=== PATIENT | female | born 1955 | race Caucasian/White ===

== ENCOUNTER 2017-01-21 07:54 | Observation (INO) | payer OTHER ==
[~2017-01-21 07:54] MED LIST: ADENOSINE 60 MG/20 ML VIAL ONE
[2017-01-21 08:43] LABS: #Basophils 0.1 thou/uL (0.0-0.2); #Eosinphils 0.1 thou/uL (0.0-0.7); #Lymphocytes 1.8 thou/uL (1.20-3.40); #Monocytes 0.7 thou/uL (0.11-0.59); #Neutrophils 5.6 thou/uL (1.40-6.50); %Basophils 0.7 % (0.0-1.0); %Eosinophils 1.1 % (0.0-10.0); %Lymphocytes 21.4 % (21.0-51.0); %Monocytes 8.3 % (0.0-10.0); Mean Platelet Volume 7.8 fL (7.4-10.4); Red Blood Cell (RBC) Count 4.27 mill/uL (4.20-5.40); White Blood Cell (WBC) Count 8.2 thou/uL (4.8-10.8)
[2017-01-21 09:06] LABS: ALT (SGPT) 15 U/L (8-55); AST (SGOT) 15 U/L (5-34); Alkaline Phosphatase 71 U/L (40-150); Anion Gap 12 mmol/L (10-20); BUN (Urea Nitrogen) 19 mg/dL (9.8-20.1); Bilirubin, Total 0.4 mg/dL (0.2-1.2); CK (CPK) 64 U/L (29-168); Calc. Creatinine Clearance 0 mL/min (70-130); Calcium 9.2 mg/dL (7.8-10.44); Carbon Dioxide 28 mmol/L (23-31); Chloride 102 mmol/L (98-107); Estimated GFR-MDRD 65; Globulin 2.9 g/dL (2.4-3.5); Lipase 11 U/L (8-78); Protein, Total 6.8 g/dL (6.0-8.3)
[2017-01-21 09:07] LABS: Troponin I Less than 0.010 ng/mL (< 0.028)
--- NOTE | 2017-01-21 09:19 | RAD ---
EXAM: CHEST 2 VIEWS: HISTORY: Chest pain. COMPARISON: None. FINDINGS: Slight elongation of the aorta. Normal cardiac silhouette. The pulmonary vessels and hilum are nor mal. No masses or consolidation. No pneumothorax or osseous abnormalities. IMPRESSION: No acute cardiopulmonary process. POS: [facility]
[2017-01-21] MEDS ORDERED: Potassium Chloride 20 MEQ TAB ONE (11:22)
[2017-01-21 11:27] LABS: Bilirubin Negative (Negative); Blood, Urine Negative (Negative); Glucose, Urine (Dipstick) Negative (Negative); Ketone, Urine Negative (Negative); Nitrite Negative (Negative); Protein, Urine (Dipstick) Negative (Neg-Trace); Urobilinogen 0.2 mg/dL (0.2-1.0)
[2017-01-21 11:30] LABS: Bacteria/HPF Rare-Few HPF (None Seen); Hyaline Casts/LPF 0-3 HYALINE CAST LPF (0-3 Hyaline); Squamous Epithelial 0-3 HPF (0-3)
[2017-01-21] MEDS ORDERED: ADENOSINE 60 MG/20 ML VIAL ONE (11:41)
[2017-01-21 12:00] LABS: Troponin I 0.013 ng/mL (< 0.028)
--- NOTE | 2017-01-21 12:28 | SS ---
PRIMARY CARE PHYSICIAN: [facility] call admission. REASON FOR ADMISSION: Chest pain. HISTORY OF PRESENT ILLNESS: A 61-year-old female with history of hypertension and fibromyalgia, who came to the emergency room with complaint of left-sided chest pain. This morning, the patient woke up and subsequently she was experiencing left-sided chest pain. She denies any radiation of pain. She felt mild diaphoresis, shortness of breath, but she did not have any associated nausea or vomiting. The patient denies any relation of chest pain with food, respiration or activity. Her intensity of pain was about 5/10. The patient took aspirin, but that did not improve her pain and her pain was getting worse and that is why she concerned about heart related etiology and came to the emergency room for evaluation. The patient reports that she had two cardiac catheterization and angioplasty in the past and she does have a history of coronary artery disease and she is taking medication for that. Currently, the patient is an inmate. 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 She denies any lower extremity swelling. She denies any calf tenderness. She denies any dizziness, palpitation or syncope. REVIEW OF SYSTEMS: The following complete review of systems was negative, unless otherwise mentioned in the HPI or below: Constitutional: Weight loss or gain, ability to conduct usual activities. Skin: Rash, itching. Eyes: Double vision, pain. ENT/Mouth: Nose bleeding, neck stiffness, pain, tenderness. Cardiovascular: Palpitations, dyspnea on exertion, orthopnea. Respiratory: Shortness of breath, wheezing, cough, hemoptysis, fever or night sweats. Gastrointestinal: Poor appetite, abdominal pain, heartburn, nausea, vomiting, constipation, or diarrhea. Genitourinary: Urgency, frequency, dysuria, nocturia. Musculoskeletal: Pain, swelling. Neurologic/Psychiatric: Anxiety, depression. Allergy/Immunologic: Skin rash, bleeding tendency. Please see my HPI for pertinent positives and negatives. All other review of systems reviewed and negative except as mentioned in the HPI. PAST MEDICAL HISTORY: Per the patient, she has history of coronary artery disease. She had myocardial infarction and she required cardiac catheterization and angioplasty in the past, hiatal hernia, hypertension, fibromyalgia, and peripheral neuropathy. PAST SURGICAL HISTORY: Blepharoplasty, cholecystectomy, hysterectomy, tonsillectomy, and cardiac catheterization. PAST PSYCHIATRIC HISTORY: Anxiety, depression, and posttraumatic stress disorder. SOCIAL HISTORY: The patient is originally from [place], currently inmate. No history of tobacco, alcohol or illicit drug abuse. FAMILY HISTORY: Positive for coronary artery disease to her biological father. EMERGENCY ROOM COURSE: The patient is given potassium chloride 40 mEq. ALLERGIES: No known drug allergies. CURRENT MEDICATIONS: Lisinopril 20 mg p.o. daily, Coreg 6.25 mg twice daily, hydrochlorothiazide 25 mg p.o. daily, and amlodipine 5 mg p.o. daily PHYSICAL EXAMINATION: VITAL SIGNS: On arrival, blood pressure 114/76, pulse 75, respiratory rate 16, temperature 98.6, saturation 96% on room air, weight 86.1 kilograms. GENERAL: The patient is currently alert and awake, no acute distress. HEAD: Normocephalic and atraumatic. EYES: Pupils round, reactive to light. Extraocular muscles are intact. ENT: Oropharynx within normal limits. Moist mucous membranes. No oral lesion , no pharyngeal erythema, exudate. NECK: Supple, range of motion is normal. No meningeal signs of irritation. LUNGS: Clear to auscultation without any rhonchi or rales. CARDIAC: S1, S2 regular without any murmur. ABDOMEN: Soft, bowel sounds present, nontender, nondistended. No organomegaly , no mass, no suprapubic tenderness. BACK: Unremarkable. No CVA tenderness. EXTREMITIES: Upper extremity passive movements of all joints are normal. Lower extremity, no edema. Good peripheral pulsation. No calf tenderness. PSYCHIATRIC: Normal affect. HEMATOLOGIC: No lymphadenopathy. SKIN: No skin rash. NEUROLOGIC: Nonfocal examination. SIGNIFICANT LABS, EKG based on my review reveals normal sinus rhythm within normal limits. Chest x-ray based on my review, no acute cardiopulmonary process. CBC: WBC 8.2, hemoglobin 13.3, platelets 190. BMP: Sodium 139, potassium 3.2, chloride 102, carbon dioxide 28, BUN 19, creatinine 0.88, glucose 118, calcium 9.2. LFT: AST 15, ALT 15, alkaline phosphatase 71, albumin 3.9, lipase 11, CK 64, CK-MB 0.8, troponin I less than 0.010. Urinalysis, leukocyte esterase moderate. ASSESSMENT AND PLAN/IMPRESSION: 1. Acute chest pain. The patient's chest pain description is atypical. At this point, EKG is normal. Troponin is negative. The patient does have history of hypertension and she does report that she has history of coronary artery disease. At this point, we will keep this patient in the hospital for observation. We will do serial cardiac enzymes and rule out acute coronary syndrome. We will also check D-dimer, and if D-dimer is abnormal, then we will perform CT angio to rule out any pulmonary embolism. Meanwhile, we will continue with aspirin 325 mg p.o. daily, nitropatch q.8 hourly. The patient is n.p.o. since this morning and she did not have any caffeinated products and we will try to do a stress test today if possible. We will do second set of cardiac enzyme and if that negative, then we can perform exercise Cardiolite stress test for cardiac workup. 2. Hypokalemia. The patient is already given potassium chloride 40 mEq p.o. in the emergency room. 3. Hypertension. We will continue lisinopril 20 mg p.o. daily and amlodipine 5 mg p.o. daily. 4. Urinary tract infection. We will start Cipro 250 mg p.o. b.i.d. for urinary tract infection and we will send culture urine. 5. History of hiatal hernia. 6. History of fibromyalgia. 7. History of peripheral neuropathy. 8. Coronary artery disease. 9. Deep venous thrombosis prophylaxis not needed because we are expecting discharge in 24 hours. 10. Gastrointestinal prophylaxis, Pepcid 20 mg p.o. b.i.d. CODE STATUS: The patient is FULL CODE. The patient does not have any surrogate decision maker. Disposition plan based on stress test result. [facility]
[2017-01-21] MEDS ORDERED: Acetaminophen 325 MG TAB PO PRN (12:36)
[2017-01-21] MEDS ORDERED: Ondansetron HCl/PF 4 MG/2 ML Vial IVP PRN (12:36)
[2017-01-21] MEDS ORDERED: Ketorolac Tromethamine 30 MG/ML VIAL IVP PRN (12:36)
[2017-01-21] MEDS ORDERED: Milk Of Magnesia 30 ML UDCUP PO PRN (12:36)
[2017-01-21] MEDS ORDERED: Mag-Al 1200 mg/1200 mg/30 ML UDCUP PO PRN (12:36)
[2017-01-21] MEDS ORDERED: Zolpidem Tartrate 5 MG TAB PO PRN (12:36)
[2017-01-21] MEDS ORDERED: HYDROcodone/Acetaminophen 5/325 mg Tablet PO PRN (12:36)
[2017-01-21] MEDS ORDERED: Loperamide HCl 2 MG CAP PO PRN (12:36)
[2017-01-21] MEDS ORDERED: Ondansetron ODT 4 MG TAB PO PRN (12:36)
[2017-01-21] MEDS ORDERED: Senokot 8.6 MG TAB PO PRN (12:36)
[2017-01-21 12:46] VITALS: BMI 33.5
[2017-01-21] MEDS ORDERED: Nitroglycerin 2% Ointment 1 INCH/1 GM Packet TOP SCH (14:00)
[2017-01-21 16:52] VITALS: BP 121/79; TEMP 98.7
--- NOTE | 2017-01-21 17:31 | NM ---
RADIONUCLIDE STRESS ONLY MYOCARDIAL PERFUSION SCAN WITH CT ATTENUATION CORRECTION AND SPECT IMAGING LEFT VENTRICULAR WALL MOTION EVALUATION AND EJECTION FRACTION. 01/21/17 HISTORY: Chest pain. FINDINGS: Adenosine protocol was used. There is homogeneous uptake of radiotracer throughout the left ventricu lar myocardium. No focal perfusion defects are apparent. QGS analysis of gated SPECT images shows no focal wall motion abnormalities. Left ventricular ejection fraction is calculated at 77%. IMPRESSION: 1. Normal stress only myocardial perfusion scan. 2. Normal LVEF. POS: [facility]
--- NOTE | 2017-01-21 19:13 | DIS ---
DATE OF ADMISSION: 01/21/2017 DATE OF DISCHARGE: 01/21/2017 DISCHARGE DISPOSITION: Home. PRIMARY DISCHARGE DIAGNOSES: 1. Chest pain, ruled out acute coronary syndrome. 2. Urinary tract infection. SECONDARY DISCHARGE DIAGNOSES: Hypertension, anxiety, depression, coronary artery disease, fibromya lgia, hiatal hernia, obesity with body mass index 33. PRIMARY PROCEDURE/OPERATION: None. RADIOLOGICAL INVESTIGATION: Stress test negative. Chest x-ray was normal. SIGNIFICANT DATA: CBC normal. D-dimer negative. BMP normal. LFTs normal. Cardiac enzymes negati ve. LDL 142, lipase 11. Urinalysis suggestive of UTI. DISCHARGE MEDICATIONS: Lovastatin 20 mg p.o. at bedtime, Cipro 250 mg p.o. b.i.d., Pepcid 20 mg p.o . b.i.d., Coreg 6.25 mg p.o. b.i.d., aspirin 325 mg p.o. daily, amlodipine 5 mg p.o. daily, hydrochl orothiazide 25 mg p.o. daily, lisinopril 20 mg p.o. daily, potassium chloride 40 mEq p.o. daily, and Zoloft 150 mg p.o. daily. CONTRAINDICATIONS: None. CODE STATUS: FULL CODE. INPATIENT CONSULTANTS: None. ALLERGIES: No known drug allergies. DISCHARGE PLAN: Post hospital, the patient will follow up with primary care physician. HOSPITAL COURSE: A 61-year-old female who was admitted for chest pain. Please see my HPI for furth er details. This patient was admitted earlier today with complaint of chest pain. Her chest pain d escription was atypical. We kept this patient in the hospital. We did cardiac enzymes that were ne gative. Telemetry remained unremarkable. Her D-dimer was negative. Chest x-ray was normal. Her p otassium was low, which was replaced with potassium. Nuclear medicine stress test and that was also normal. Her urinalysis was suggestive of UTI and that is why we prescribed Cipro for 5 more days. The patient is admitted and discharged on the same day.
[2017-01-21] MEDS ORDERED: Cipro 250 MG TAB PO SCH (20:00)
[2017-01-21] MEDS ORDERED: Famotidine 20 MG TAB PO SCH (21:00)
[2017-01-22] MEDS ORDERED: Lisinopril 20 MG TAB PO SCH (09:00)
[2017-01-22] MEDS ORDERED: Hydrochlorothiazide 25 MG TAB PO SCH (09:00)
[2017-01-22] MEDS ORDERED: Aspirin 325 MG TAB PO SCH (09:00)
== END 2017-01-21 19:14 | disposition home or self-care (01) ==
LOC: ERS 07:54 → EEVIPCON 10:34 → 2SW 10:34
PROVIDERS: ADMIT Internal Medicine; ATTEND Internal Medicine
DX: R07.89 Other chest pain (principal); N39.0 Urinary tract infection, site not specified; I10 Essential (primary) hypertension; F32.9 Major depressive disorder, single episode, unspecified; F41.9 Anxiety disorder, unspecified; I25.10 Atherosclerotic heart disease of native coronary artery without angina pectoris; M79.7 Fibromyalgia; G62.9 Polyneuropathy, unspecified; I25.2 Old myocardial infarction; E87.6 Hypokalemia; K44.9 Diaphragmatic hernia without obstruction or gangrene; E66.9 Obesity, unspecified; Z68.33 Body mass index [BMI] 33.0-33.9, adult; Z98.61 Coronary angioplasty status; Z90.49 Acquired absence of other specified parts of digestive tract; Z90.89 Acquired absence of other organs; Z90.710 Acquired absence of both cervix and uterus; Z82.49 Family history of ischemic heart disease and other diseases of the circulatory system
CPT/HCPCS: 36415; 71020; 78452; 80053; 80061; 81003; 81015; 82553; 83690; 84484; 85025; 85379; 87086; 93005; 93017; 96374; A9500; G0378; J0153; J1885